=== PATIENT | female | born 1985 | race Caucasian/White ===

== ENCOUNTER 2016-06-05 11:03 | Emergency (ER) | payer BC, OTHER ==
[2016-06-05 11:42] VITALS: TEMP 98.1; BMI 21.6
--- NOTE | 2016-06-05 12:51 | PDOC ---
History of Present Illness - General History Source: Patient Exam Limitations: No Limitations - History of Present Illness Initial Comments: 06/05/16 13:19 The patient is a 31 year old female with no significant past medical history currently ~5 weeks who presents to the emergency department with left sided abdominal pain. The patient states that she has been having this pain for about 1 week. She went to an urgent care center 2 days ago and was sent for an ultrasound. Yesterday, the radiologist called the patient and told her to go to the ER for further evaluation as the ultrasound results were inconclusive. She did not have blood work done. The patient reports continued left lower quadrant abdominal discomfort and associated nausea. She denies any vomiting, diarrhea, or constipation. The patient denies any vaginal discharge or bleeding. She denies dysuria, hematuria, or frequency. She denies recent illness, fevers, or chills. <Sommer Leija - Last Filed: 06/05/16 13:19> <Soraida Damon - Last Filed: 06/09/16 07:53> - General Chief Complaint: Pain, Acute Stated Complaint: 5 WKS , LT ABD PAIN Time Seen by Provider: 06/05/16 11:56 Past History <Sommer Leija - Last Filed: 06/05/16 13:19> - Past Medical History Asthma: Yes Thyroid Disease: Yes (MILD DOE DX 2013) - Surgical History Abdominal Surgery: Yes (hernia) - Immunization History Td Vaccination: Yes Immunization Up to Date: Yes - Psycho/Social/Smoking Cessation Hx Anxiety: No Suicidal Ideation: No Smoking Status: No Smoking History: Never smoked Number of Cigarettes Smoked Daily: 0 <Soraida Damon - Last Filed: 06/09/16 07:53> - Past Medical History Allergies/Adverse Reactions: Allergies Allergy/AdvReac Type Severity Reaction Status Date / Time No Known Allergies Allergy Verified 06/05/16 11:38 Home Medications: Ambulatory Orders NK [No Known Home Medication] 06/05/16 Review of Systems - Review of Systems Able to Perform ROS?: Yes Comments:: 06/05/16 13:19 GENERAL/CONSTITUTIONAL: No fever or chills. No weakness. HEAD, EYES, EARS, NOSE AND THROAT: No change in vision. No ear pain or discharge. No sore throat. CARDIOVASCULAR: No chest pain or shortness of breath. RESPIRATORY: No cough, wheezing, or hemoptysis. GASTROINTESTINAL: +LLQ pain, +nausea. No vomiting, diarrhea or constipation. GENITOURINARY: No dysuria, frequency, or change in urination. MUSCULOSKELETAL: No joint or muscle swelling or pain. No neck or back pain. SKIN: No rash NEUROLOGIC: No headache, vertigo, loss of consciousness, or change in strength/ sensation. ENDOCRINE: No increased thirst. No abnormal weight change. HEMATOLOGIC/LYMPHATIC: No anemia, easy bleeding, or history of blood clots. ALLERGIC/IMMUNOLOGIC: No hives or skin allergy. <Sommer Leija - Last Filed: 06/05/16 13:19> *Physical Exam - Vital Signs Last Vital Signs Temp Pulse Resp BP Pulse Ox 98.1 F 80 19 110/63 100 06/05/16 11:39 06/05/16 11:39 06/05/16 11:39 06/05/16 11:39 06/05/16 11:39 - Physical Exam Comments: 06/05/16 13:20 GENERAL: Awake, alert, and fully oriented, in no acute distress HEAD: No signs of trauma EYES: PERRLA, EOMI, sclera anicteric, conjunctiva clear ENT: Auricles normal inspection, hearing grossly normal, nares patent, oropharynx clear without exudates. Moist mucosa NECK: Normal ROM, supple, no lymphadenopathy, JVD, or masses LUNGS: Breath sounds equal, clear to auscultation bilaterally. No wheezes, and no crackles HEART: Regular rate and rhythm, normal S1 and S2, no murmurs, rubs or gallops ABDOMEN: Soft, nontender, normoactive bowel sounds. No guarding, no rebound. No masses EXTREMITIES: Normal range of motion, no edema. No clubbing or cyanosis. No cords, erythema, or tenderness NEUROLOGICAL: Cranial nerves II through XII grossly intact. Normal speech, normal gait SKIN: Warm, Dry, normal turgor, no rashes or lesions noted. <Sommer Leija - Last Filed: 06/05/16 13:19> - Vital Signs Last Vital Signs Temp Pulse Resp BP Pulse Ox 98.1 F 80 19 110/63 100 06/05/16 11:39 06/05/16 11:39 06/05/16 11:39 06/05/16 11:39 06/05/16 11:39 <Soraida Damon - Last Filed: 06/09/16 07:53> ED Treatment Course - LABORATORY CBC & Chemistry Diagram: 06/05/16 12:15 06/05/16 12:15 <Sommer Leija - Last Filed: 06/05/16 13:19> - LABORATORY CBC & Chemistry Diagram: 06/05/16 12:15 06/05/16 12:15 <Soraida Damon - Last Filed: 06/09/16 07:53> Medical Decision Making - Medical Decision Making Pt has her previous ultrasound report at the bedside, which also showed a sac but no pole. B-HCG is high enough to see a pole, I suspect that she may have miscarried/blighted ovum. Will need serial B-HCGs to determine if it is trending upward or downward, as she only had an ultrasound at the urgent care , no blood work. 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 I gave her a copy of her results for outpatient f/u. <Soraida Damon - Last Filed: 06/09/16 07:53> *DC/Admit/Observation/Transfer - Attestations Scribe Attestion: 06/05/16 13:20 Documentation prepared by Sommer Leija, acting as medical claims representative for Soraida Damon MD. <Sommer Leija - Last Filed: 06/05/16 13:19> - Discharge Dispostion Admit: No <Soraida Damon - Last Filed: 06/09/16 07:53> Diagnosis at time of Disposition: Abdominal pain affecting , Threatened miscarriage in early - Discharge Dispostion Disposition: HOME Condition at time of disposition: Stable - Referrals Referrals: STAFF,NOT ON [Primary Care Provider] - - Patient Instructions Printed Discharge Instructions: DI for Threatened Additional Instructions: RETURN IN 48 HOURS OR FOLLOW UP WITH YOUR DRUMS TEACHER TO REPEAT BLOODWORK AND ULTRASOUND
[2016-06-05 13:23] LABS: BASOPHIL 0.5 % (0-2.0); EOSINOPHIL 2.3 % (0-4.5); MCH 27.2 pg (25.7-33.7); MCHC 32.1 g/dl (32.0-36.0); MEAN CELL VOLUME 84.7 fl (80-96); MEAN PLT VOLUME 8.3 fl (7.5-11.1); NEUTROPHILS 61.3 % (42.8-82.8); PLATELET COUNT 268 K/MM3 (134-434); RDW 13.4 % (11.6-15.6); WHITE BLOOD COUNT 7.1 K/mm3 (4.0-10.0)
[2016-06-05 13:39] LABS: ALBUMIN 4.1 g/dl (3.4-5.0); ANION GAP 10 (8-16); BILIRUBIN,TOTAL 0.6 mg/dL (0.2-1.0); CALCIUM 9.6 mg/dL (8.5-10.1); CO2 24 mmol/L (21-32); CREATININE 0.5 mg/dL (0.55-1.02); GLUCOSE,RANDOM 77 mg/dL (74-106); SGOT/AST 14 U/L (15-37); SGPT/ALT 17 U/L (12-78)
[2016-06-05 13:39] LABS: URINE APPEARANCE SLCLOUDY; URINE BILIRUBIN NEGATIVE (NEGATIVE); URINE BLOOD NEGATIVE (NEGATIVE); URINE COLOR YELLOW; URINE GLUCOSE (UA) NEGATIVE (NEGATIVE); URINE KETONE TRACE (NEGATIVE); URINE LEUK ESTERASE NEGATIVE (NEGATIVE); URINE NITRITE NEGATIVE (NEGATIVE); URINE PROTEIN NEGATIVE (NEGATIVE); URINE UROBILINOGEN NEGATIVE E.U./dl (0.2-1.0)
[2016-06-05 13:58] LABS: ALK PHOS 47 U/L (45-117); TOT PROT 7.8 g/dl (6.4-8.2)
[2016-06-05 16:35] VITALS: BP 120/72; PULSE 82
== END 2016-06-05 16:37 | disposition home or self-care (01) ==
LOC: JER 11:03
DX: O26.891 Other specified pregnancy related conditions, first trimester (principal); Z3A.01 Less than 8 weeks gestation of pregnancy; E07.9 Disorder of thyroid, unspecified; J45.909 Unspecified asthma, uncomplicated
CPT/HCPCS: 36415; 76817-TC; 80053; 81003; 84702; 85025; 99285-25

== ENCOUNTER 2020-06-07 01:43 | Emergency (ER) | payer BC, OTHER ==
[2020-06-07 02:02] VITALS: BP 132/79; PULSE 109; TEMP 98.2; BMI 22.3
[2020-06-07] MEDS ORDERED: diphenhydrAMINE HCL 50 MG CAPSULE PO ONE (02:49)
[2020-06-07] MEDS ORDERED: diphenhydrAMINE HCL 25 MG CAPSULE (FP) PO ONE (02:54)
[2020-06-07] MEDS ORDERED: DEXAMETHASONE 4 MG TABLET (FP) PO ONE (02:55)
[2020-06-07] MEDS ORDERED: DEXAMETHASONE SOD PHOSPHATE 10 MG/1 ML VIAL ONE (03:00)
[2020-06-07] MEDS ORDERED: FAMOTIDINE 10 MG TABLET PO ONE (04:17)
[2020-06-07] MEDS ORDERED: FAMOTIDINE 10 MG TABLET ONE (04:28)
== END 2020-06-07 06:21 | disposition home or self-care (01) ==
LOC: JER 01:43
DX: T78.40XA Allergy, unspecified, initial encounter (principal); B08.8 Other specified viral infections characterized by skin and mucous membrane lesions
CPT/HCPCS: 99284-25

== ENCOUNTER 2020-06-08 13:29 | Emergency (ER) | payer BC, OTHER ==
[2020-06-08 13:53] VITALS: BP 109/66; PULSE 91; TEMP 98.1; BMI 21.8
[2020-06-08] MEDS ORDERED: DEXAMETHASONE SOD PHOSPHATE 4 MG/1 ML VIAL IM ONE (15:25)
[2020-06-08] MEDS ORDERED: FAMOTIDINE 20 MG TABLET PO ONE (15:25)
[2020-06-08] MEDS ORDERED: FAMOTIDINE 20 MG TABLET ONE (15:42)
[2020-06-08] MEDS ORDERED: DEXAMETHASONE SOD PHOSPHATE 4 MG/1 ML VIAL ONE (15:42)
== END 2020-06-08 17:38 | disposition home or self-care (01) ==
LOC: JER 13:29
PROC: 3E023GC Introduction of Other Therapeutic Substance into Muscle, Percutaneous Approach (ICD-10-PCS; principal; 2020-06-08)
PROC: 3E023GC Introduction of Other Therapeutic Substance into Muscle, Percutaneous Approach (ICD-10-PCS; 2020-06-08)
DX: B09 Unspecified viral infection characterized by skin and mucous membrane lesions (principal)
CPT/HCPCS: 99284-25

== ENCOUNTER 2020-08-22 18:55 | Emergency (ER) | payer BC, OTHER ==
[2020-08-22 19:09] VITALS: BP 125/85; PULSE 85; TEMP 98.5; BMI 23.8
[2020-08-22] MEDS ORDERED: SODIUM CHLORIDE 1,000 ML IV STA (20:05)
[2020-08-22] MEDS ORDERED: ONDANSETRON 4 MG/2 ML VIAL IVPUSH ONE (20:05)
[2020-08-22 20:08] LABS: PH,URINE 6.5 (5.0-8.0); URINE APPEARANCE CLEAR; URINE BILIRUBIN NEGATIVE (NEGATIVE); URINE COLOR YELLOW; URINE GLUCOSE (UA) NEGATIVE (NEGATIVE); URINE KETONE NEGATIVE (NEGATIVE); URINE LEUK ESTERASE NEGATIVE (NEGATIVE); URINE NITRITE NEGATIVE (NEGATIVE); URINE PROTEIN NEGATIVE (NEGATIVE); URINE UROBILINOGEN 0.2 mg/dL (0.2-1.0)
[2020-08-22 20:10] LABS: HCG,QUALITATIVE URINE Negative
[2020-08-22] MEDS ORDERED: ONDANSETRON 4 MG/2 ML VIAL ONE (20:13)
[2020-08-22 20:39] LABS: BASO % 0.8 % (0-2.0); EOS % 6.7 % (0-4.5); HEMATOCRIT 37.9 % (32.4-45.2); HEMOGLOBIN 12.3 GM/dL (10.7-15.3); LYMPH % 31.7 % (8-40); MCHC 32.5 g/dl (32.0-36.0); MEAN PLT VOLUME 8.2 fl (7.5-11.1); MONO % 9.8 % (3.8-10.2); PLATELET COUNT 326 K/MM3 (134-434); RBC 4.57 M/mm3 (3.60-5.2); RDW 14.7 % (11.6-15.6); WHITE BLOOD COUNT 5.5 K/mm3 (4.0-10.0)
[2020-08-22 21:00] LABS: ALBUMIN 4.4 g/dl (3.4-5.0); CALCIUM 9.3 mg/dL (8.5-10.1)
[2020-08-22 21:01] LABS: BLOOD UREA NITROGEN 12.4 mg/dL (7-18)
[2020-08-22 21:04] LABS: CREATININE 0.7 mg/dL (0.55-1.3)
[2020-08-22 21:05] LABS: BILIRUBIN,TOTAL 0.4 mg/dL (0.2-1); TOT PROT 8.4 g/dl (6.4-8.2)
== END 2020-08-22 23:01 | disposition home or self-care (01) ==
LOC: JER 18:55
PROC: 3E033NZ Introduction of Analgesics, Hypnotics, Sedatives into Peripheral Vein, Percutaneous Approach (ICD-10-PCS; principal; 2020-08-22)
PROC: 3E0337Z Introduction of Electrolytic and Water Balance Substance into Peripheral Vein, Percutaneous Approach (ICD-10-PCS; 2020-08-22)
DX: R10.32 Left lower quadrant pain (principal)
CPT/HCPCS: 36415; 74177-TC; 80053; 81003; 83690; 84703; 85025; 87086; 99285-25